=== PATIENT | female | born 1935 | race Caucasian/White ===

== ENCOUNTER 2017-06-14 17:06 | Emergency (ER) | payer MEDICARE ==
[~2017-06-14] VITALS: Ht 157.5 cm; Wt 65.8 kg
[~2017-06-14 17:06] MED LIST: ASA81 MG PO; LEVOTHROID100 MC1 PO; TRAMADOL HCL50 M1 PO; Z.0.AMLODIPINE BESYL PO; Z.0.CITALOPRAM HBR20 PO; Z.0.KLONOPIN0.5 MG PO; Z.0.MELOXICAM7.5 MG PO; Z.0.NORCO 5-325 TA1 PO; [UNRECOGNIZED DRUG - OTHER] PO
--- NOTE | 2017-06-14 19:33 | Diagnostic Imaging Report ---
PE[facility] AP 1-2 VIEWS Comparison: 09/13/2013 Clinical history: Pain status post fall, trauma Findings: Incompletely imaged right hip arthroplasty. 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 No acute fracture seen. Impression: No acute bony abnormality Signed by: Dr Gabby Martinez MD on 06/14/2017 7:29 PM
--- NOTE | 2017-06-14 20:12 | Diagnostic Imaging Report ---
Examination: CT BRAIN WITHOUT CONTRAST History:Fall; head trauma. Comparison studies: Head CT dated 02/06/2012. Technique: Axial images were obtained from the skull base to the vertex. Coronal and sagittal images reconstructed from the axial data. Intravenous contrast: None Findings: Scalp: No abnormalities. Bones: No fractures, blastic or lytic lesions. Brain sulci: Appropriate for age. Ventricles: Normal in size and configuration. No hydrocephalus. Extra-axial space: No abnormalities. Parenchyma: Interval increased conspicuity of mild confluent areas of hypoattenuation in the periventricular and subcortical white matter, nonspecific. No masses, hemorrhage, or acute or chronic cortical based vascular insults. Sellar/suprasellar region: No abnormalities. Craniocervical junction: Patent foramen magnum. No Chiari one malformation. Incidental findings: Atherosclerotic calcification of the cavernous and supraclinoid internal carotid and V4 segments of the bilateral vertebral arteries. Impression: 1. No new acute intracranial abnormalities. 2. Increased conspicuity of mild chronic microvascular ischemic change when compared to prior head CT dated 02/06/2012. Signed by: Dr. yNa Pelayo M.D. on 06/14/2017 8:08 PM
--- NOTE | 2017-06-14 20:15 | Diagnostic Imaging Report ---
Examination: CT CERVICAL SPINE WITHOUT CONTRAST HISTORY:Fall. Neck pain. COMPARISON:None. TECHNIQUE: Multidetector helical axial images were obtained without contrast from the foramen magnum to T1. Coronal and sagittal reformatted images were done. Bone and soft tissue windows were evaluated. FINDINGS: Alignment:Normal alignment and lordosis. Vertebrae: Normal height and density. No acute fracture, infection or neoplasm. Disc space heights: Normal height. Caliber of spinal canal: Developmentally normal. Posterior fossa and craniocervical junction: Foramen magnum patent. No Chiari 1 malformation. Soft tissues: No abnormality. Degenerative changes: No foraminal or canal stenosis. IMPRESSION: No acute abnormalities. Signed by: Dr. Nya Pelayo M.D. on 06/14/2017 8:11 PM
[2017-06-14 21:32] VITALS: BP 124/84
== END 2017-06-14 21:37 | disposition home or self-care (01) ==
LOC: ER 17:06
DX: S00.83XA Contusion of other part of head, initial encounter (principal); M54.2 Cervicalgia; W01.0XXA Fall on same level from slipping, tripping and stumbling without subsequent striking against object, initial encounter; Y93.01 Activity, walking, marching and hiking; Y92.008 Other place in unspecified non-institutional (private) residence as the place of occurrence of the external cause
CPT/HCPCS: 70450; 72125; 72170; 99283

== ENCOUNTER 2020-11-20 13:08 | Inpatient (IN) | payer MEDICARE ==
[2020-11-20] VITALS (8 sets, daily range): BP systolic 161–169; BP diastolic 84–99
[~2020-11-20] VITALS: Ht 157.5 cm; Wt 60.6 kg
[2020-11-20] MEDS ORDERED: AMIODARONE HCL 150MG 100 ML ONE (13:43)
[2020-11-20 14:15] LABS: BASOPHILS % 0.2 % (0.0-1.0); HEMATOCRIT 37.3 % (34.2-44.1); HEMOGLOBIN 12.2 g/dL (12.0-16.0); LYMPHOCYTES # (AUTO) 1.3 (1.0-3.2); LYMPHOCYTES % 16.6 % (18.0-39.1); MEAN CORPUSCULAR HEMOGLOBIN 32.8 pg (28-32); MEAN CORPUSCULAR HGB CONC 32.7 g/dL (31-35); MEAN CORPUSCULAR VOLUME 100.3 fL (81-99); MONOCYTES # (AUTO) 0.5 (0.2-0.8); MONOCYTES % 6.6 % (4.4-11.3); NEUTROPHILS # (AUTO) 6.1 (2.1-6.9); NEUTROPHILS % 76.1 % (38.7-80.0); PLATELET COUNT 435 x10e3/uL (140-360); RED BLOOD COUNT 3.72 x10e6/uL (3.6-5.1); RED CELL DISTRIBUTION WIDTH 15.2 % (11.7-14.4)
[2020-11-20 14:40] LABS: ALBUMIN 3.6 g/dL (3.5-5.0); ALBUMIN/GLOBULIN RATIO 0.8 (0.8-2.0); ANION GAP 16.8 mmol/L (8-16); CALCIUM 9.6 mg/dL (8.4-10.2); CREATININE, SERUM 1.02 mg/dL (0.57-1.11); POTASSIUM 3.8 mmol/L (3.5-5.1)
[2020-11-20] MEDS ORDERED: ASPIRIN 81 MG CHEW TAB PO ONE (15:15)
[2020-11-20] MEDS ORDERED: TRAMADOL HCL 50 MG TAB PO PRN (16:00)
[2020-11-20] MEDS ORDERED: BENZONATATE 100 MG CAP PO PRN (16:00)
[2020-11-20] MEDS ORDERED: MAGNESIUM SULF 1GRAM/DEXTROSE 100 ML IV ONE ×2 (16:00→16:08)
[2020-11-20] MEDS ORDERED: ALBUTEROL/IPRATROPIUM 3 ML NEB NEB PRN (16:00)
[2020-11-20] MEDS ORDERED: POTASSIUM CHLORIDE 20 MEQ TAB CR PO PRN (16:00)
[2020-11-20] MEDS ORDERED: LIDOCAINE 4% PATCH TP PRN (16:00)
[2020-11-20] MEDS ORDERED: HYDRALAZINE HCL 20 MG/ML VIAL IV PRN (16:00)
[2020-11-20] MEDS ORDERED: DEXTROSE 50% SYRINGE 50 ML IV PRN (16:00)
[2020-11-20] MEDS ORDERED: DIPHENHYDRAMINE HCL 25 MG CAP PO PRN (16:00)
[2020-11-20] MEDS ORDERED: ONDANSETRON HCL INJ 2MG/ML 2ML 2 MG/ML VIAL IV PRN (16:00)
[2020-11-20] MEDS ORDERED: MIDAZOLAM HCL 2 MG/2 ML VIAL ONE (16:37)
[2020-11-20] MEDS ORDERED: SODIUM CHLORIDE 0.9% 500ML 500 ML ONE (16:38)
[2020-11-20] MEDS ORDERED: SODIUM CHLORIDE 0.9% 1000ML 1,000 ML ONE (16:38)
[2020-11-20] MEDS ORDERED: LIDOCAINE HCL 2% LOCAL 20 ML VIAL ONE (16:38)
[2020-11-20] MEDS ORDERED: FENTANYL CITRATE/PF 100MCG/2 ML INJ ONE (16:38)
[2020-11-20] MEDS ORDERED: SODIUM CHLORIDE 0.9% 50ML 50 ML ONE (16:42)
[2020-11-20] MEDS: ACETAMINOPHEN 325 MG TAB PO PRN (20:55)
[2020-11-20] MEDS ORDERED: MELATONIN 5 MG TABLET PO PRN (21:00)
[2020-11-20] MEDS: Cefazolin 1 GM in SODIUM CHLORIDE 0.9% 50ML 50 ML IV SCH (22:00)
[2020-11-20 23:26] LABS: CREATINE KINASE MB 1.7 ng/mL (0-5.0)
[2020-11-21] VITALS (25 sets, daily range): BP systolic 125–178; BP diastolic 43–131
[2020-11-21 04:52] LABS: BASOPHILS % 0.1 % (0.0-1.0); EOSINOPHILS % 0.3 % (0.0-6.0); HEMATOCRIT 32.7 % (34.2-44.1); HEMOGLOBIN 10.9 g/dL (12.0-16.0); LYMPHOCYTES # (AUTO) 1.3 (1.0-3.2); LYMPHOCYTES % 17.9 % (18.0-39.1); MEAN CORPUSCULAR HEMOGLOBIN 33.3 pg (28-32); MEAN CORPUSCULAR HGB CONC 33.3 g/dL (31-35); MONOCYTES % 13.7 % (4.4-11.3); NEUTROPHILS % 67.6 % (38.7-80.0); PLATELET COUNT 329 x10e3/uL (140-360); RED BLOOD COUNT 3.27 x10e6/uL (3.6-5.1); RED CELL DISTRIBUTION WIDTH 15.3 % (11.7-14.4)
[2020-11-21 05:11] LABS: ALBUMIN 3.1 g/dL (3.5-5.0); ALBUMIN/GLOBULIN RATIO 0.8 (0.8-2.0); ANION GAP 16.5 mmol/L (8-16); CALCIUM 8.8 mg/dL (8.4-10.2); CHOL/HDL RATIO 3.4 (3.0-3.6); CREATININE, SERUM 0.97 mg/dL (0.57-1.11); MAGNESIUM 2.3 MG/DL (1.3-2.1); PHOSPHORUS 3.2 MG/DL (2.3-4.7); POTASSIUM 3.5 mmol/L (3.5-5.1)
[2020-11-21 05:32] LABS: CREATINE KINASE MB 1.7 ng/mL (0-5.0)
[2020-11-21 05:35] LABS: THYROID STIMULATING HORMONE 0.056 uIU/mL (0.350-4.940)
[2020-11-21] MEDS: Cefazolin 1 GM in SODIUM CHLORIDE 0.9% 50ML 50 ML IV SCH ×3 (06:00→22:00)
[2020-11-21] MEDS: PANTOPRAZOLE SOD 40 MG TABEC PO SCH (07:42)
[2020-11-21] MEDS: LEVOTHYROXINE SODIUM 100 MCG TAB PO SCH (07:43)
[2020-11-21] MEDS: AMLODIPINE BESYLATE 5 MG TAB PO SCH (07:43)
[2020-11-21] MEDS: ASPIRIN 81 MG ENTERIC COATED PO SCH (07:43)
[2020-11-21] MEDS ORDERED: CLONAZEPAM 0.5 MG TAB PO PRN (15:45)
[2020-11-21] MEDS ORDERED: CLONAZEPAM 0.5 MG TAB PO SCH (17:00)
[2020-11-21] MEDS: CITALOPRAM HYDROBROMIDE 20 MG TAB PO SCH (21:00)
[2020-11-22] VITALS (23 sets, daily range): BP systolic 122–184; BP diastolic 48–105
[2020-11-22] MEDS: Cefazolin 1 GM in SODIUM CHLORIDE 0.9% 50ML 50 ML IV SCH ×3 (06:00→22:20)
[2020-11-22] MEDS: PANTOPRAZOLE SOD 40 MG TABEC PO SCH (07:56)
[2020-11-22] MEDS: LEVOTHYROXINE SODIUM 100 MCG TAB PO SCH (07:56)
[2020-11-22] MEDS: AMLODIPINE BESYLATE 5 MG TAB PO SCH (09:03)
[2020-11-22] MEDS: ASPIRIN 81 MG ENTERIC COATED PO SCH (09:03)
[2020-11-22] MEDS: CITALOPRAM HYDROBROMIDE 20 MG TAB PO SCH (22:20)
[2020-11-23] VITALS (18 sets, daily range): BP systolic 139–170; BP diastolic 84–114
[2020-11-23 05:00] LABS: BASOPHILS # (AUTO) 0.1 (0.0-0.1); BASOPHILS % 0.9 % (0.0-1.0); EOSINOPHILS # (AUTO) 0.1 (0.0-0.4); EOSINOPHILS % 1.4 % (0.0-6.0); HEMATOCRIT 35.9 % (34.2-44.1); HEMOGLOBIN 11.7 g/dL (12.0-16.0); LYMPHOCYTES # (AUTO) 1.9 (1.0-3.2); LYMPHOCYTES % 26.6 % (18.0-39.1); MEAN CORPUSCULAR HEMOGLOBIN 32.5 pg (28-32); MEAN CORPUSCULAR HGB CONC 32.6 g/dL (31-35); MEAN CORPUSCULAR VOLUME 99.7 fL (81-99); MONOCYTES # (AUTO) 1.1 (0.2-0.8); MONOCYTES % 16.2 % (4.4-11.3); NEUTROPHILS # (AUTO) 3.8 (2.1-6.9); NEUTROPHILS % 54.5 % (38.7-80.0); PLATELET COUNT 347 x10e3/uL (140-360); RED CELL DISTRIBUTION WIDTH 15.4 % (11.7-14.4)
[2020-11-23 05:29] LABS: ALBUMIN 2.8 g/dL (3.5-5.0); ALBUMIN/GLOBULIN RATIO 0.8 (0.8-2.0); CALCIUM 8.6 mg/dL (8.4-10.2); CREATININE, SERUM 0.8 mg/dL (0.57-1.11)
[2020-11-23] MEDS: Cefazolin 1 GM in SODIUM CHLORIDE 0.9% 50ML 50 ML IV SCH ×2 (05:30→13:19)
[2020-11-23] MEDS: PANTOPRAZOLE SOD 40 MG TABEC PO SCH (07:39)
[2020-11-23] MEDS: LEVOTHYROXINE SODIUM 100 MCG TAB PO SCH (07:39)
[2020-11-23] MEDS: ACETAMINOPHEN 325 MG TAB PO PRN (07:39)
[2020-11-23] MEDS: AMLODIPINE BESYLATE 5 MG TAB PO SCH (09:00)
[2020-11-23] MEDS: ASPIRIN 81 MG ENTERIC COATED PO SCH (09:00)
[2020-11-23] MEDS ORDERED: POTASSIUM CHLORIDE 20MEQ/100ML 100 ML IV ONE (10:30)
[2020-11-23] MEDS ORDERED: MIDAZOLAM HCL 2 MG/2 ML VIAL ONE (17:00)
[2020-11-23] MEDS ORDERED: LIDOCAINE 1% W/EPINEPHRINE 20 ML VIAL ONE (17:01)
[2020-11-23] MEDS ORDERED: GENTAMICIN SULFATE 40 MG/ML 2 ML VIAL ONE (17:01)
[2020-11-23] MEDS ORDERED: FENTANYL CITRATE/PF 100MCG/2 ML INJ ONE (17:02)
[2020-11-23] MEDS ORDERED: SODIUM CHLORIDE 0.9% 500ML 500 ML ONE (17:03)
[2020-11-23] MEDS ORDERED: Vancomycin IV 1 GM VIAL ONE (17:03)
[2020-11-23] MEDS ORDERED: SODIUM CHLORIDE 0.9% 1000ML 2,000 ML ONE (17:04)
[2020-11-23] MEDS ORDERED: SODIUM CHLORIDE 0.9% 250ML 250 ML ONE (17:05)
[2020-11-23] MEDS: CITALOPRAM HYDROBROMIDE 20 MG TAB PO SCH (20:58)
[2020-11-23] MEDS ORDERED: SODIUM CHLORIDE 0.9% 200 ML ONE (22:29)
[2020-11-24] VITALS: BP 166/94
[2020-11-24 04:00] VITALS: BP 167/105
[2020-11-24 07:30] VITALS: BP 162/88
[2020-11-24] MEDS: LEVOTHYROXINE SODIUM 100 MCG TAB PO SCH (08:00)
[2020-11-24] MEDS: AMLODIPINE BESYLATE 5 MG TAB PO SCH (08:00)
[2020-11-24] MEDS: ASPIRIN 81 MG ENTERIC COATED PO SCH (08:00)
[2020-11-24] MEDS: PANTOPRAZOLE SOD 40 MG TABEC PO SCH (08:00)
[2020-11-24 08:03] VITALS: BP 162/88
[2020-11-24 12:30] VITALS: BP 161/107
[2020-11-24] MEDS ORDERED: LOSARTAN POTASSIUM 25 MG TAB PO SCH (16:00)
== END 2020-11-24 16:20 | disposition home or self-care (01) | DRG 242 ==
LOC: ER 13:10 → ERHOLD 16:10 → ICU 17:39 → IMCU 11-23 18:24
PROVIDERS: ADMIT Internal Medicine; ATTEND Internal Medicine
PROC: 02H43JZ Insertion of Pacemaker Lead into Coronary Vein, Percutaneous Approach (ICD-10-PCS; principal; 2020-11-20)
PROC: 5A1223Z Performance of Cardiac Pacing, Continuous (ICD-10-PCS; 2020-11-20)
PROC: 0JH606Z Insertion of Pacemaker, Dual Chamber into Chest Subcutaneous Tissue and Fascia, Open Approach (ICD-10-PCS; 2020-11-23)
PROC: 02HK3JZ Insertion of Pacemaker Lead into Right Ventricle, Percutaneous Approach (ICD-10-PCS; 2020-11-23)
PROC: 02PA3MZ Removal of Cardiac Lead from Heart, Percutaneous Approach (ICD-10-PCS; 2020-11-23)
PROC: 02H63JZ Insertion of Pacemaker Lead into Right Atrium, Percutaneous Approach (ICD-10-PCS; 2020-11-23)
DX: I44.1 Atrioventricular block, second degree (principal); I50.31 Acute diastolic (congestive) heart failure; I13.0 Hypertensive heart and chronic kidney disease with heart failure and stage 1 through stage 4 chronic kidney disease, or unspecified chronic kidney disease; N18.2 Chronic kidney disease, stage 2 (mild); D64.9 Anemia, unspecified; I45.81 Long QT syndrome; Z20.822 Contact with and (suspected) exposure to COVID-19
CPT/HCPCS: 33208; 33210; 33233; 36415; 71045; 75820; 80053; 80061; 82550; 82553; 83036; 83735; 83880; 84100; 84295; 84443; 84484; 85025; 93005; 99152; 99153; 99285; C1769; C1785; C1898; J0360; J0690; J1580; J2001; J2250; J3010; J3370; J3475; J3480; J7030; J7040; J7050; U0002

== ENCOUNTER 2020-12-03 15:27 | Inpatient (IN) | payer MEDICARE ==
[~2020-12-03] VITALS: Ht 157.5 cm; Wt 60.3 kg
[2020-12-03 17:07] LABS: BASOPHILS % 0.5 % (0.0-1.0); EOSINOPHILS # (AUTO) 0.1 (0.0-0.4); EOSINOPHILS % 1.1 % (0.0-6.0); HEMATOCRIT 35.8 % (34.2-44.1); HEMOGLOBIN 11.7 g/dL (12.0-16.0); LYMPHOCYTES # (AUTO) 1.6 (1.0-3.2); LYMPHOCYTES % 19.8 % (18.0-39.1); MEAN CORPUSCULAR HEMOGLOBIN 32.7 pg (28-32); MEAN CORPUSCULAR HGB CONC 32.7 g/dL (31-35); MONOCYTES # (AUTO) 1.3 (0.2-0.8); MONOCYTES % 15.5 % (4.4-11.3); NEUTROPHILS # (AUTO) 5.2 (2.1-6.9); NEUTROPHILS % 62.6 % (38.7-80.0); PLATELET COUNT 359 x10e3/uL (140-360); RED BLOOD COUNT 3.58 x10e6/uL (3.6-5.1); RED CELL DISTRIBUTION WIDTH 15.5 % (11.7-14.4)
[2020-12-03 17:19] LABS: INR 1.06; PROTHROMBIN TIME 14.4 seconds (11.9-14.5)
[2020-12-03 17:20] LABS: PARTIAL THROMBOPLASTIN TIME 31.4 seconds (23.8-35.5)
[2020-12-03 17:31] LABS: ALBUMIN/GLOBULIN RATIO 0.8 (0.8-2.0); ANION GAP 13.4 mmol/L (8-16); CALCIUM 9.1 mg/dL (8.4-10.2); CREATININE, SERUM 0.8 mg/dL (0.57-1.11); MAGNESIUM 1.9 MG/DL (1.3-2.1); POTASSIUM 3.4 mmol/L (3.5-5.1)
[2020-12-03 17:40] LABS: CREATINE KINASE MB 2.4 ng/mL (0-5.0)
[2020-12-03 17:57] LABS: CLARITY,URINE HAZY (CLEAR); COLOR,URINE AMBER (YELLOW); KETONES,URINE NEGATIVE (NEGATIVE); LEUKOCYTE ESTERASE ,URINE NEGATIVE (NEGATIVE); NITRITE,URINE NEGATIVE (NEGATIVE); PROTEIN,URINE DIPSTICK >=300 (NEGATIVE)
[2020-12-03 17:58] LABS: URINE UROBILINOGEN 0.2 mg/dL (0.2 - 1)
[2020-12-03 18:03] LABS: EPITHELIAL CELLS,URINE FEW /LPF
[2020-12-03 18:04] LABS: AMORPHOUS SEDIMENT,URINE MODERATE (FEW); BACTERIA,URINE FEW /HPF; HYALINE CASTS 0-1 (0-1); MUCUS,URINE FEW (RARE)
[2020-12-03] MEDS ORDERED: IOPAMIDOL 370 MG/ML 200 ML INFUS..BTL INJ ONE (18:22)
[2020-12-03] MEDS ORDERED: SODIUM CHLORIDE 0.9% 50ML 50 ML ONE (18:22)
[2020-12-03] MEDS: FUROSEMIDE INJ 10 MG/ML 4 ML VIAL IV SCH (21:40)
[2020-12-03 21:58] VITALS: BP 142/102
[2020-12-03 22:03] VITALS: BP 142/102
[2020-12-03] MEDS ORDERED: ATIVAN0.5 MG PO (22:10)
[2020-12-03] MEDS ORDERED: LORAZEPAM 0.5 MG TAB PO PRN (22:15)
[2020-12-03] MEDS: ACETAMINOPHEN 325 MG TAB PO PRN (22:20)
[2020-12-03 23:10] LABS: CREATINE KINASE MB 2.5 ng/mL (0-5.0)
[2020-12-03] MEDS: AMLODIPINE BESYLATE 5 MG TAB PO SCH (23:59)
[2020-12-04] VITALS (8 sets, daily range): BP systolic 129–152; BP diastolic 81–107
[2020-12-04] MEDS: ACETAMINOPHEN 325 MG TAB PO PRN (04:42)
[2020-12-04 05:31] LABS: CREATINE KINASE MB 2.2 ng/mL (0-5.0)
[2020-12-04] MEDS ORDERED: HYDROCODONE/APAP 5MG-325MG TAB PO PRN (07:00)
[2020-12-04] MEDS: AMLODIPINE BESYLATE 5 MG TAB PO SCH (08:19)
[2020-12-04] MEDS: FUROSEMIDE INJ 10 MG/ML 4 ML VIAL IV SCH ×2 (08:19→17:45)
[2020-12-04] MEDS: BISACODYL 5 MG TAB EC PO PRN (08:20)
[2020-12-04] MEDS: LEVOTHYROXINE SODIUM 100 MCG TAB PO SCH (09:15)
[2020-12-04] MEDS: SPIRONOLACTONE 25 MG TAB PO SCH (12:07)
[2020-12-04 13:40] LABS: CREATINE KINASE MB 1.9 ng/mL (0-5.0)
[2020-12-04 19:30] LABS: FREE THYROXINE INDEX 2.7114 (1.4-3.8); THYROID STIMULATING HORMONE 0.693 uIU/mL (0.350-4.940)
[2020-12-04] MEDS: CITALOPRAM HYDROBROMIDE 20 MG TAB PO SCH (21:45)
[2020-12-05] VITALS (8 sets, daily range): BP systolic 125–138; BP diastolic 83–94
[2020-12-05 04:54] LABS: BASOPHILS # (AUTO) 0.1 (0.0-0.1); EOSINOPHILS # (AUTO) 0.1 (0.0-0.4); EOSINOPHILS % 1.7 % (0.0-6.0); HEMATOCRIT 36.6 % (34.2-44.1); HEMOGLOBIN 12.1 g/dL (12.0-16.0); LYMPHOCYTES % 27.5 % (18.0-39.1); MEAN CORPUSCULAR HEMOGLOBIN 32.6 pg (28-32); MEAN CORPUSCULAR HGB CONC 33.1 g/dL (31-35); MEAN CORPUSCULAR VOLUME 98.7 fL (81-99); MONOCYTES # (AUTO) 1.1 (0.2-0.8); MONOCYTES % 14.7 % (4.4-11.3); NEUTROPHILS # (AUTO) 3.9 (2.1-6.9); NEUTROPHILS % 54.8 % (38.7-80.0); PLATELET COUNT 335 x10e3/uL (140-360); RED BLOOD COUNT 3.71 x10e6/uL (3.6-5.1); RED CELL DISTRIBUTION WIDTH 15.3 % (11.7-14.4)
[2020-12-05 05:14] LABS: ALBUMIN 2.7 g/dL (3.5-5.0); ALBUMIN/GLOBULIN RATIO 0.8 (0.8-2.0); ANION GAP 11.9 mmol/L (8-16); CALCIUM 8.4 mg/dL (8.4-10.2); CREATININE, SERUM 0.78 mg/dL (0.57-1.11); MAGNESIUM 1.8 MG/DL (1.3-2.1)
[2020-12-05 05:28] LABS: POTASSIUM 2.9 mmol/L (3.5-5.1)
[2020-12-05] MEDS: ASPIRIN 81 MG ENTERIC COATED PO SCH (06:45)
[2020-12-05] MEDS: LEVOTHYROXINE SODIUM 100 MCG TAB PO SCH (06:45)
[2020-12-05] MEDS ORDERED: POTASSIUM CHLORIDE 20 MEQ TAB CR PO ONE ×2 (07:55→18:00)
[2020-12-05] MEDS ORDERED: POTASSIUM CHLORIDE 20MEQ/100ML 200 ML IV ONE (08:45)
[2020-12-05] MEDS: FUROSEMIDE INJ 10 MG/ML 4 ML VIAL IV SCH ×2 (09:20→17:09)
[2020-12-05] MEDS: SPIRONOLACTONE 25 MG TAB PO SCH (09:21)
[2020-12-05] MEDS: AMLODIPINE BESYLATE 5 MG TAB PO SCH (09:21)
[2020-12-05] MEDS ORDERED: SODIUM CHLORIDE 0.9% 250ML 250 ML ONE (10:07)
[2020-12-05] MEDS: BISACODYL 5 MG TAB EC PO PRN (18:31)
[2020-12-05] MEDS: CITALOPRAM HYDROBROMIDE 20 MG TAB PO SCH (21:29)
[2020-12-06] VITALS: BP 132/81
[2020-12-06 04:58] LABS: BASOPHILS % 0.6 % (0.0-1.0); EOSINOPHILS # (AUTO) 0.1 (0.0-0.4); HEMATOCRIT 38.3 % (34.2-44.1); HEMOGLOBIN 12.6 g/dL (12.0-16.0); LYMPHOCYTES # (AUTO) 2.1 (1.0-3.2); LYMPHOCYTES % 29.9 % (18.0-39.1); MEAN CORPUSCULAR HEMOGLOBIN 32.5 pg (28-32); MEAN CORPUSCULAR HGB CONC 32.9 g/dL (31-35); MEAN CORPUSCULAR VOLUME 98.7 fL (81-99); MONOCYTES # (AUTO) 1.1 (0.2-0.8); MONOCYTES % 15.1 % (4.4-11.3); NEUTROPHILS # (AUTO) 3.7 (2.1-6.9); NEUTROPHILS % 52.1 % (38.7-80.0); PLATELET COUNT 338 x10e3/uL (140-360); RED BLOOD COUNT 3.88 x10e6/uL (3.6-5.1); RED CELL DISTRIBUTION WIDTH 15.4 % (11.7-14.4)
[2020-12-06 05:26] LABS: ANION GAP 11.9 mmol/L (8-16); CALCIUM 8.8 mg/dL (8.4-10.2); CREATININE, SERUM 0.83 mg/dL (0.57-1.11)
[2020-12-06 05:32] LABS: POTASSIUM 3.9 mmol/L (3.5-5.1)
[2020-12-06] MEDS: LEVOTHYROXINE SODIUM 100 MCG TAB PO SCH (05:34)
[2020-12-06] MEDS: ASPIRIN 81 MG ENTERIC COATED PO SCH (05:34)
[2020-12-06 05:45] VITALS: BP 127/79
[2020-12-06 07:29] VITALS: BP 124/58
[2020-12-06] MEDS: SPIRONOLACTONE 25 MG TAB PO SCH (08:36)
[2020-12-06] MEDS: AMLODIPINE BESYLATE 5 MG TAB PO SCH (08:36)
[2020-12-06 08:45] VITALS: BP 124/58
[2020-12-06] MEDS ORDERED: FUROSEMIDE INJ 10 MG/ML 4 ML VIAL IV SCH (09:00)
[2020-12-06 11:28] VITALS: BP 118/74
[2020-12-06 15:27] VITALS: BP 115/72
== END 2020-12-06 18:00 | disposition home health service (06) | DRG 291 ==
LOC: ER 16:12 → ERHOLD 20:34 → MED/SURG 21:33 → MED/SURG2 12-04 13:41
PROVIDERS: ADMIT Family Medicine; ATTEND Family Medicine
DX: I11.0 Hypertensive heart disease with heart failure (principal); I50.31 Acute diastolic (congestive) heart failure; Z95.0 Presence of cardiac pacemaker; I27.22 Pulmonary hypertension due to left heart disease; J44.9 Chronic obstructive pulmonary disease, unspecified; Z20.822 Contact with and (suspected) exposure to COVID-19
CPT/HCPCS: 36415; 71045; 71260; 80048; 80053; 81001; 82550; 82553; 83735; 83880; 84436; 84443; 84479; 84484; 85025; 85379; 85610; 85730; 93005; 93306; 99251; 99284; J1940; J3480; J7050; Q9967; U0002